=== PATIENT | female | born 1970 | race Caucasian/White ===

== ENCOUNTER → 2017-07-15 | Outpatient (CLI) | payer BC, OTHER ==
--- NOTE | 2017-07-15 09:51 | RAD ---
DATE: 07/15/2017 EXAM: MAMMO LAISHA SCREENING BILATERAL HISTORY: Routine screening COMPARISON: Baseline study This study was interpreted with the benefit of Computerized Aided Detection (CAD). The breast parenchyma shows scattered fibroglandular densities. Breast parenchyma level B. FINDINGS: 2-D and 3-D tomosynthesis imaging was performed in CC and MLO projections. There is a 9 mm smooth nodule in the posterolateral aspect of the left breast which may be an intramammary lymph node. No spiculated mass or architectural distortion is seen. No suspicious microcalcifications are evident. Several benign-appearing lymph nodes are present in both axillary regions. IMPRESSION: A small left posterolateral breast nodule may be an intramammary lymph node. Sonographic evaluation is suggested. BI-RADS CATEGORY: 0 INCOMPLETE: NEEDS ADDITIONAL IMAGING EVALUATION AND/OR PRIOR MAMMOGRAMS FOR COMPARISON. RECOMMENDED FOLLOW-UP: ADD ADDITIONAL IMAGING PQRS compliance statement: Patient information was entered into a reminder system with a target due date for the next mammogram. Mammography is a sensitive method for finding small breast cancers, but it does not detect them all and is not a substitute for careful clinical examination. A negative mammogram does not negate a clinically suspicious finding and should not result in delay in biopsying a clinically suspicious abnormality. "Our facility is accredited by the [employer] Mammography Program."
== END | disposition home or self-care (01) ==
LOC: MAMMO 08:19
PROVIDERS: ATTEND Family Medicine
DX: Z12.31 Encounter for screening mammogram for malignant neoplasm of breast (principal)
CPT/HCPCS: 77063; 77067

== ENCOUNTER → 2017-07-20 | Outpatient (CLI) | payer BC ==
--- NOTE | 2017-07-20 13:45 | RAD ---
Indication: Diagnostic ultrasound for abnormality seen on screening mammogram from 07/15/2017. Technique: Grayscale and color Doppler images of the Limited left breast. Comparison: Screening mammogram from 07/15/2017 Findings: In the region of mammographically seen abnormality at 2:00 position approximately 10 cm from the nipple there is an oval-shaped hypoechoic mass which is wider than taller with a relatively well-circumscribed margins measuring 0.9 x 0.4 x 0.8 cm. No posterior shadowing is appreciated. Questionable posterior acoustic enhancement is seen. Impression: Left breast mass corresponding to mammographically seen abnormality as described above with benign features. Differential diagnosis includes fibroadenoma or minimally complicated cyst. BI-RADS 3: Probably benign. Follow-up left breast diagnostic mammogram and ultrasound in 3 months. Biopsy per patient's preference.
== END | disposition home or self-care (01) ==
LOC: US 13:02
PROVIDERS: ATTEND Family Medicine
DX: R92.8 Other abnormal and inconclusive findings on diagnostic imaging of breast (principal)
CPT/HCPCS: 76641